=== PATIENT | male | born 2005 | race African-American/Black ===

== ENCOUNTER 2025-01-06 17:36 | Emergency (ER) | payer MEDICAID ==
[~2025-01-06] VITALS: Ht 177.8 cm; Wt 68.0 kg
[2025-01-06 17:40] VITALS: O2SAT 98
[2025-01-06 22:09] VITALS: BP 120/53; PULSE 81; RESP 18; TEMP 36.5; O2SAT 100
[2025-01-06 22:20] LABS: *AMPHETAMINES SCREEN URINE NEGATIVE (NEGATIVE)
[2025-01-06 22:21] LABS: *BARBITURATES SCREEN URINE NEGATIVE (NEGATIVE); *BENZODIAZEPINES SCREEN URINE NEGATIVE (NEGATIVE); *COCAINE SCREEN URINE NEGATIVE (NEGATIVE); CANNABINOID URINE SCREEN PRESUMPTIVE POSITIVE (NEGATIVE); ECSTASY MDMA SCREEN URINE NEGATIVE (NEGATIVE); METHADONE URINE SCREEN NEGATIVE (NEGATIVE); OPIATES URINE SCREEN NEGATIVE (NEGATIVE); PHENCYCLIDINE URINE SCREEN NEGATIVE (NEGATIVE)
== END 2025-01-06 21:13 | disposition home or self-care (01) ==
LOC: ER 17:36
DX: F12.929 Cannabis use, unspecified with intoxication, unspecified (principal)
CPT/HCPCS: 80305; 93005; 99284